=== PATIENT | male | born 1965 | race Caucasian/White ===

== ENCOUNTER 2024-08-04 17:17 | Inpatient (IN) | payer OTHER ==
[~2024-08-04] VITALS: Ht 185.4 cm; Wt 104.5 kg
[2024-08-04 17:34] LABS: BASOPHILS ABSOLUTE AUTO 0.05 K/mm3 (0.00-0.23); BASOPHILS PERCENT AUTO 1 % (0-2); EOSINOPHILS ABSOLUTE AUTO 0.06 K/mm3 (0.00-0.68); EOSINOPHILS PERCENT AUTO 1 % (0-6); Hemoglobin 14.3 g/dL (13.5-17.5); IMMATURE GRAN ABSOLUTE AUTO 0.15 K/mm3 (0.00-0.10); IMMATURE GRAN PERCENT AUTO 2 % (0-1); LYMPHOCYTES ABSOLUTE AUTO 2.42 K/mm3 (0.84-5.20); LYMPHOCYTES PERCENT AUTO 33 % (21-46); MONOCYTES ABSOLUTE AUTO 0.59 K/mm3 (0.16-1.47); MONOCYTES PERCENT AUTO 8 % (4-13); Mean Corpuscular HGB 28.7 pg (26.0-34.0); Mean Corpuscular HGB Conc 33.3 g/dL (31.5-36.5); Mean Corpuscular Volume 86 fL (80-100); Mean Platelet Volume 9.7 fL (9.1-12.4); NEUTROPHILS ABSOLUTE AUTO 4.13 K/mm3 (1.96-9.15); NEUTROPHILS PERCENT AUTO 56 % (41-73); Platelet Count 195 K/mm3 (150-400); RDW Coefficient Variation 13.1 % (11.7-14.2); RDW Standard Deviation 40.7 fL (35.1-46.3); Red Blood Cell Count 4.99 M/mm3 (4.30-5.90)
[2024-08-04] MEDS ORDERED: FentaNYL Citrate 50 MCG/ML 2 ML Injection IV ONE (17:35)
[2024-08-04 18:19] LABS: Albumin, Blood 3.3 g/dL (3.4-5.0); Albumin/Globulin Ratio 1.4 (0.8-1.8); Bilirubin, Total 0.4 mg/dL (0.1-1.0); Bun/Creatinine Ratio 10.1 (12.0-20.0); Calcium, Blood 8.1 mg/dL (8.5-10.1); Globulin, Blood 2.4 g/dL (2.2-4.0); Potassium, Blood 3.5 mmol/L (3.5-5.5); Total Protein, Blood 5.7 g/dL (6.4-8.2)
--- NOTE | 2024-08-04 18:25 | NUR ---
Pt. is in ED and is in pain because of a fall. Pts. mom is at bedside. Both welcome my visit. Pt. requests prayer. Prayed with Pt. and Mom. Both verbalized gratitude for the spiritual care visit. Pt. displays evidence of significant pain.
[2024-08-04] MEDS ORDERED: Methocarbamol 500 MG Tab PO ONE (18:30)
[2024-08-04] MEDS ORDERED: HYDROmorphone HCl/Pf 1MG SYR IV ONE (18:45)
[2024-08-04 19:20] LABS: International Normalized Ratio 0.95; Prothrombin Time Results 10.2 Sec (9.7-11.5)
[2024-08-04] MEDS ORDERED: Ondansetron HCl 2 MG / ML 2ML Vial IV PRN (21:50)
[2024-08-04] MEDS ORDERED: Magnesium Hydroxide Conc 10 ML UDC PO PRN (21:50)
[2024-08-04] MEDS ORDERED: HYDROmorphone HCl/Pf 1MG SYR IV PRN (21:50)
[2024-08-04] MEDS ORDERED: FLU VACC TS2024-25(6MOS UP)/PF 45 MCG/0.5 ML SYRINGE IM ONE (21:50)
[2024-08-04] MEDS ORDERED: Lactated Ringer's 1,000 ML IV SCH (21:50)
[2024-08-04] MEDS ORDERED: Acetaminophen 325 MG TABLET PO PRN (21:55)
[2024-08-04] MEDS ORDERED: OxyCODONE HCL 5 MG TAB PO PRN (21:55)
[2024-08-04] MEDS ORDERED: Ketorolac Tromethamine 15mg Vial IV PRN (22:05)
[2024-08-04 22:53] VITALS: BP 114/86
[2024-08-04] MEDS ORDERED: ASPI81CH PO (22:53)
--- NOTE | 2024-08-05 04:06 | NUR ---
SHIFT SUMMARY *SHAWN* WAS ALERT AND FULLY ORIENTED ON ASSESMENT. MIDLINE INSCISION KORY & C/D/I PT HAVING GREEN WATERY STOOLS, MILK OF MAG HELD. PAIN WELL UNDER CONTROL, PT DENIES NAUSEA. NO ACUTE EVENTS TONIGHT, NO CHANGES TO PT CONDITION.
[2024-08-05 04:52] LABS: Hematocrit 40.6 % (37.0-53.0); Hemoglobin 13.4 g/dL (13.5-17.5); Mean Corpuscular HGB 28.5 pg (26.0-34.0); Mean Corpuscular Volume 86 fL (80-100); Mean Platelet Volume 9.6 fL (9.1-12.4); Platelet Count 148 K/mm3 (150-400); RDW Coefficient Variation 13.2 % (11.7-14.2); RDW Standard Deviation 41.3 fL (35.1-46.3); White Blood Cell Count 10.83 K/mm3 (4.00-11.30)
[2024-08-05 05:19] LABS: Bun/Creatinine Ratio 13.9 (12.0-20.0); Calcium, Blood 8.5 mg/dL (8.5-10.1); Creatinine, Blood 0.79 mg/dL (0.60-1.20); Potassium, Blood 4.1 mmol/L (3.5-5.5)
[2024-08-05 05:27] VITALS: BP 103/66
--- NOTE | 2024-08-05 06:01 | NUR ---
SHIFT SUMMARY SRINATH WAS ALERT AND FULLY ORIENTED WHEN HE WAS ADMITTED FROM THE ED. PT HAS TLSO BRACE IN PLACE FOR T12 AND L2 FRACTURES. PT HAS SCREAMING PAIN WITH MOVEMENT BUT PAIN IS WELL CONTROLLED AT THIS TIME WHILE AT REST. PT IS TO BE KEPT ON BEDREST, LOG ROLL PT FOR TURNS AND CARE. PT HAS INTACT CIRCULATION, AND SENSATION TO ALL EXTREMETIES, ALTHOUGH HE DOES ADMIT THAT HE HAS NOTICED A "VERY MILD" TINGLING SENSATION TO R FOOT INTERMITTENTLY, BUT NOT AT THIS TIME. NO CHANGES TO PT CONDITION AFTER ARRIVAL TO THE UNIT.
[2024-08-05 07:17] VITALS: BP 111/85
[2024-08-05] MEDS ORDERED: Cyclobenzaprine HCl 10 MG Tab PO PRN (08:40)
[2024-08-05] MEDS ORDERED: Sennosides 8.6 MG Tab PO SCH (09:00)
[2024-08-05] MEDS ORDERED: Enoxaparin 40 MG/0.4 ML SYR SC SCH (09:00)
[2024-08-05 14:33] VITALS: BP 114/80
--- NOTE | 2024-08-05 18:35 | NUR ---
SHIFT SUMMARY S/P FALL FROM LADDER/TREE, A/OX4, VSS, TOLERATING PO, DENEIS PAIN MOST OF THE SHIFT WHILE NOT MOVING BUT BECOMES VERY PAINFUL WITH ANY MOVEMENT. PT TAKEN TO MRI TODAY AND HAD HIS BRACE REMOVED DUE TO NOT KNOWING IF IT HAD METAL IN IT, PT REFUSED HAVING IT PUT BACK ON DUE TO BECOMING PAINFUL EVEN WITH PAIN MEDICATIONS. NO OTHER EVENTS THIS SHIFT, CALL LIGHT IN REACH.
[2024-08-05 19:12] VITALS: BP 138/101
[2024-08-06 03:45] VITALS: BP 119/80
--- NOTE | 2024-08-06 04:52 | NUR ---
SHIFT UDPATE PT ABLE TO REST DURING SHIFT. PAIN MANAGED PER EMAR. REPORTS PAIN WORSE WITH MOVEMENT. PT VOICED UNDERSTANDING OF PLAN OF CARE, DENIES QUESTIONS/CONCERNS AT THIS TIME.
--- NOTE | 2024-08-06 05:01 | NUR ---
SHIFT NOTE PT AWARE OF ORDERS FOR BACK BRACE. PT DECLINES REAPPLICATION, STATES IT WILL HURT TOO MUCH. EDUCATED ON PURPOSE OF BRACE AND THAT IT SHOULD SUPPORT & REDUCE PAIN WITH MOVEMENT. PT DECLINES. SAYS WILL CONSIDER IN AM.
--- NOTE | 2024-08-06 06:20 | NUR ---
SHIFT NOTE BACK BRACE APPLIED. PT SHARLENE WELL. PT REPORTS IMPROVED COMFORT WITH BACK BRACE IN PLACE.
--- NOTE | 2024-08-06 06:22 | NUR ---
NURSE NOTE, OXYGEN THERAPY PT ON RA AT 0615. SPO2 [id number]
[2024-08-06 07:24] VITALS: BP 117/91
[2024-08-06 07:25] VITALS: BP 112/94
[2024-08-06 15:01] VITALS: BP 132/100
[2024-08-06 15:02] VITALS: BP 124/97
--- NOTE | 2024-08-06 16:48 | NUR ---
SHIFT SUMMARY PT KI RICHARDSON AT THIS TIME. WORKED WITH PT TWICE TODAY, STATED HE WAS A HEAVY MOVE OUT OF THE BED BUT PT WOULD CONTINUE TO WORK WITH PT. FAMILY AT THE T/O THE SHIFT. MEDICATED FOR BACK SPASMS PER THE EMAR, PT HAS DENIED PAIN. CALLS AND MAKES HIS NEEDS KNOWN. REPOSITIONS HIMSELF IN THE BED. BACK BRACE IN PLACE. PT USES URINAL INDEPENDENTLY. VOIDING WELL BUT STILL NO BM. MEDICATED PER THE EMAR FOR BOWEL CARE. CALL LIGHT WITHIN REACH, BED LOCKED AND IN THE LOWEST POSITION. WILL REPORT TO ONCOMING NURSE.
[2024-08-06 20:00] VITALS: BP 121/97
[2024-08-07 03:45] VITALS: BP 119/93
--- NOTE | 2024-08-07 05:34 | NUR ---
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 PAIN MANAGED PER EMAR AND IND REPOSITIONING. BRACE IN PLACE. SHARLENE REGULAR DIET. IV SL. PT RESTING IN BED WITH EYES CLOSED, RESP EVEN WITH CALL LIGHT IN REACH. PLAN TO CONTINUE TO WORK WITH THERAPY AND POTENTIAL DISCHARGE. WILL GIVE REPORT TO ONCOMING RN.
[2024-08-07 07:08] VITALS: BP 120/86
--- NOTE | 2024-08-07 09:16 | NUR ---
PT NOTIFIED THIS RN THAT HE DOES NOT WANT TO HAVE SURGERY HE WOULD LIKE TO TALK TO THE HOSPITALIST THEN DISCHARGE HOME. MESSAGE LEFT WITH DR. CHAO, WAITING FOR RETURN CALL.
--- NOTE | 2024-08-07 15:08 | NUR ---
Upon receiving a referral for spiritual care, I visited the patient. 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 We talk about his current condition and the plan to go to a rehab facility tomorrow or the next day. He also shares about his coneection with [employer] [employer] and the great encouragement he received from him upon arrival to [facility]. The patient speaks of his many talents and careers and the many good connections he has made along the way. He shared about the great strides he has made and also the physical struggles he is still experiencing. I provided therapeutic listening, encouragement and a praise and prayer combination. Patient then in-turn provided prayer for this [employer]. I believe we both benefitted from spiritual care.
[2024-08-07 15:22] VITALS: BP 113/87
--- NOTE | 2024-08-07 17:59 | NUR ---
SHIFT SUMMARY PT HAS BEEN A SBA T/O THE DAY WITH WALKER AND GAIT BELT. PAIN MANAGED WITH OXYCODONE, TYLENOL, TORADOL AND FLEXERIL. PT REPORTS IMPROVED PAIN MANAGEMENT AND MOBILITY THIS SHIFT. PT IN GOOD SPIRITS AND MOTIVATED TO WORK WITH THERAPY. VSS. PT USES CALL LIGHT APPROPRIATELY.
[2024-08-07 20:21] VITALS: BP 118/91
[2024-08-08 05:22] VITALS: BP 121/91
--- NOTE | 2024-08-08 05:50 | NUR ---
SHIFT SUMMARY NO ACUTE CHANGES DURING SHIFT. PAIN MANAGED PER EMAR. AMBULATED IN HALLWAY X 1. PT REPORTS RESTING COMFORTABLY T/O NIGHT. TOLERATING PO INTAKE. VOIDING IN URINAL IND AT BEDSIDE. IV SL. PT HOPEFUL TO DISCHARGE TODAY. PLAN TO WORK WITH THERAPY THIS MORNING. WILL REPORT TO ONCOMING RN
[2024-08-08 07:38] VITALS: BP 109/88
--- NOTE | 2024-08-08 11:08 | NUR ---
Pt. is awake and sitting up in a chair playing cribbage with his mother when he welcomed my visit. 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 Facilitated a lengthy life review and Pt. verbalized an anticipated plan of care. Pt. displayed evidence of being a motivated Pt. Pastoral Care is given. Prayed with Pt, Pt. verbalized gratitude for the spiritual care visit.
[2024-08-08 15:02] VITALS: BP 119/87
[2024-08-08 19:29] VITALS: BP 121/92
--- NOTE | 2024-08-08 19:35 | NUR ---
SHIFT SUMMARY PAIN MANAGED WITH PO PAIN MEDICATION. PT IS A SBA WITH WALKER. PT SAT UP TO THE CHAIR FOR MEALS. PT IS PLEASANT AND COOPERATIVE, HIGHLY MOTIVATED. PLAN FOR DC HOME TOMORROW.
[2024-08-09 02:02] VITALS: BP 114/88
--- NOTE | 2024-08-09 04:24 | NUR ---
SHIFT SUMMARY PT ABLE TO REST DURING THE SHIFT. PAIN MANAGED PER EMAR. PT TOLERATING PO INTAKE. PT TOOK WALK LAST NIGHT BEFORE GOING TO BED, SBA W/ FWW AND GB. VSS. NO OTHER CONCERNS AT THIS TIME, CALL LIGHT WITHIN REACH
[2024-08-09 08:10] VITALS: BP 118/84
[2024-08-09] MEDS ORDERED: Polyethylene Glycol 3350 17 gm PO SCH (09:00)
[2024-08-09] MEDS ORDERED: IBUP400 PO (11:59)
[2024-08-09] MEDS ORDERED: ACET325 PO (11:59)
[2024-08-09] MEDS ORDERED: Cyclobenzaprine5 MG PO (11:59)
[2024-08-09] MEDS ORDERED: OXAYDO5 M4 PO (12:00)
[2024-08-09] MEDS ORDERED: MIRALAX17 GM PO (12:01)
--- NOTE | 2024-08-09 12:11 | NUR ---
pt. is sitting up eating lunch whenhe welcomes my visit. Pt. verbalized his expectation to be discharged soon. Pt. also verbalized effusively of the excellent care that he received at this hospital from the ER till discharge. Pt. welcomed prayer. Prayed with Pt. Pt. verbalized gratitude for the spiritual care he has received.
--- NOTE | 2024-08-09 13:11 | NUR ---
DISCHARGE: PACKET PRINTED AND PT EDUCATED. IV DC'D BY ANTHONY BAKER. PT HAS WALKER FROM HOME AND LUMBAR BRACE
== END 2024-08-09 13:29 | disposition home health service (06) | DRG 551 ==
LOC: ER 17:17 → SURS 17:18
PROVIDERS: Student in an Organized Health Care Education/Training Program; ADMIT Surgery
DX: S32.028A Other fracture of second lumbar vertebra, initial encounter for closed fracture (principal); S06.4XAA Epidural hemorrhage with loss of consciousness status unknown, initial encounter; S22.088A Other fracture of T11-T12 vertebra, initial encounter for closed fracture; Z60.2 Problems related to living alone; W11.XXXA Fall on and from ladder, initial encounter; Z86.73 Personal history of transient ischemic attack (TIA), and cerebral infarction without residual deficits; Z98.890 Other specified postprocedural states; Z79.82 Long term (current) use of aspirin
CPT/HCPCS: 36415; 70450; 71045; 72125; 72128; 72131; 72148; 74177; 80048; 80053; 83735; 85025; 85027; 85610; 85730; 94762; 96372; 96374-59; 96375; 96376; 97110; 97116; 97161; 97166; 97530; 97535; 99285-25; A9270; G0378; J1170; J1650; J1885; J2405; J3010; Q9967